=== PATIENT | female | born 1970 | race Caucasian/White ===

== ENCOUNTER 2017-03-03 21:57 | Emergency (ER) | payer OTHER ==
[~2017-03-03] VITALS: Ht 162.6 cm; Wt 96.5 kg
[~2017-03-03 21:57] MED LIST: HYDR-3720 PO; IBUP400T22 PO
[2017-03-03 22:12] VITALS: Ht 162.6 cm; Wt 96.5 kg
--- NOTE | 2017-03-03 23:23 | ERD ---
ER Documentation Chief Complaint Date/Time DATE: 03/03/17 TIME: 23:20 Chief Complaint right eye redness/pain today HPI This patient is a 46-year-old female with past medical history of migraines presenting to the emergency department for right eye redness on the medial side which developed suddenly today while the patient was at the gym. The patient also reports a mild headache. She denies any trauma. Symptoms are currently mild in severity. She has never had these symptoms in the past. No other reported symptoms currently. ROS All systems reviewed and are negative except as per history of present illness. Medications Home Meds Active Scripts Hydrocodone Bit-Acetaminophen* ([place]*) 7.5-325 Tablet, 1 TAB PO Q4H Y for PAIN , #10 TAB Prov:STELLA ELDER PA-C 08/22/15 Ibuprofen* (Motrin*) 400 Mg Tab, 400 MG PO Q6H Y for PAIN, #30 TAB Prov:STELLA ELDER PA-C 08/22/15 Allergies Allergies: Coded Allergies: penicillin (Verified Allergy, Unknown, 08/22/15) PMhx/Soc History of Surgery: Yes (Appy, R knee sx ) Anesthesia Reaction: No Hx Neurological Disorder: No Hx Respiratory Disorders: No Hx Cardiac Disorders: Yes (HTN) Hx Psychiatric Problems: Yes (DEPRESSION/ANXIETY/INSOMNIA) Hx Alcohol Use: No Hx Substance Use: No Hx Tobacco Use: No Smoking Status: Never smoker Physical Exam Vitals Vital Signs Date Time Temp Pulse Resp B/P Pulse Ox O2 Delivery O2 Flow Rate FiO2 03/03/17 22:12 98.2 90 20 133/98 98 Physical Exam Const: Nontoxic, well-appearing female in no acute distress. Head: Atraumatic Eyes: There appears to be a subconjunctival hemorrhage present on the medial portion of the right eye. EOMs are intact bilaterally. No visual acuity deficits. ENT: Normal External Ears, Nose and Mouth. Neck: Full range of motion..~ No meningismus. Resp: Clear to auscultation bilaterally Cardio: Regular rate and rhythm, no murmurs Skin: No petechiae or rashes Back: No midline or flank tenderness Ext: No cyanosis, or edema Neur: Awake and alert Psych: Normal Mood and Affect Procedures/MDM 46-year-old female presenting to the emergency department for redness noted to the right eye. On physical examination the patient's blood pressure was slightly elevated at 133/98, however she does have a history of hypertension and takes medication. She did take her medication today. There appears to be a subconjunctival hemorrhage present to the medial portion of the right eye. The patient is neurovascularly intact. I have low suspicion for TIA, CVA, intracranial hemorrhage, or other emergent conditions. The patient was given reassurance and counseling regarding subconjunctival hemorrhage. She understands her discharge plan and diagnosis. Her questions and concerns were addressed. Close follow-up with primary care physician advised. Strict ER return parameters were discussed. Departure Diagnosis: Primary Impression: Subconjunctival hemorrhage Laterality: right Qualified Code: H11.31 - Subconjunctival hemorrhage, right Condition: Fair Patient Instructions: Subconjunctival Hemorrhage Referrals: [facility] YOU HAVE RECEIVED A MEDICAL SCREENING EXAM AND THE RESULTS INDICATE THAT YOU DO NOT HAVE A CONDITION THAT REQUIRES URGENT TREATMENT IN THE EMERGENCY DEPARTMENT. FURTHER EVALUATION AND TREATMENT OF YOUR CONDITION CAN WAIT UNTIL YOU ARE SEEN IN YOUR DOCTORS OFFICE WITHIN THE NEXT 1-2 DAYS. IT IS YOUR RESPONSIBILITY TO MAKE AN APPOINTMENT FOR FOL-UP CARE. IF YOU HAVE A PRIMARY DOCTOR --you should call your primary doctor and schedule an appointment IF YOU DO NOT HAVE A PRIMARY DOCTOR YOU CAN CALL OUR PHYSICIAN REFERRAL HOTLINE AT IF YOU CAN NOT AFFORD TO SEE A PHYSICIAN YOU CAN CHOSE FROM THE FOLLOWING [facility] [address] [facility]. [facility] [address] [facility] [facility] [address] [facility] [facility] [address] [facility]. [facility] [address] [facility]. [facility]. [address] Additional Instructions: Follow up with your PCP within the next 1-3 days for a repeat evaluation and a possible referral to a specialist, if required. Return the the emergency department immediately if symptoms worsen or change. If you have any questions regarding medications, ask your pharmacist or us before you leave. If any adverse reactions, occur while taking your medications, discontinue the treatment and return to the emergency department immediately. If any new or worsening symptoms, uncontrolled fevers, or other unexplained symptoms occur, return to the emergency department immediately. Take your medications as directed, and complete the entire course of treatment. GA MARTINEZ PA-C Mar 03, 2017 23:23
[2017-03-04] VITALS: BP 154/87; PULSE 77; RESP 20; TEMP 98.2
== END 2017-03-04 00:02 | disposition home or self-care (01) ==
LOC: FTE 21:57
DX: H11.31 Conjunctival hemorrhage, right eye (principal); I10 Essential (primary) hypertension
CPT/HCPCS: 99282